=== PATIENT | female | born 1995 | race Caucasian/White ===

== ENCOUNTER 2017-12-21 17:40 | Emergency (ER) | payer OTHER ==
[2017-12-21 17:51] VITALS: BP 131/80
--- NOTE | 2017-12-21 18:33 | UC ---
Substance Abuse HPI - HPI Summary HPI Summary: States that she has used several opioids throughout the years, has snorted heroine powder in the past and also used oxycodone some time ago. Lately she was taking Fentanyl pills 30mg and stopped several days ago. She states she has chills and rapid heart rate and that she desires symptomatic treatment for withdrawal symptoms. She does not want to go to ER or referred to a program. She states she has a psychiatrist who is prescribing adderall due to ADHD and that is not aware she is a polysubstance user. - History Of Current Complaint Chief Complaint: UCSubstanceUseOverdose Stated Complaint: SUBSTANCE ABUSE HELP Time Seen by Provider: 12/21/17 18:02 Hx Obtained From: Patient ?: No Onset Of Abuse Is Stated In: Weeks Timing Of Abuse: Daily Severity Initially: Moderate Severity Currently: Moderate Character: Depressed, Anxious, Lethargic Aggravating Factor(s): Nothing Alleviating Factor(s): Nothing Associated Signs And Symptoms: Positive: Sleep Disturbance, Palpitations - Risk Factor(s) Completed Suicide Risk Factors: Negative - Allergies/Home Medications Allergies/Adverse Reactions: Allergies Allergy/AdvReac Type Severity Reaction Status Date / Time acetaminophen [From Tylenol] Allergy Tinnitus Verified 12/21/17 17:52 Home Medications: Home Medications Dextroamphetamine/Amphetamine [Adderall Xr 30 mg Capsule] 30 mg PO DAILY PRN 01/05 [History Confirmed 12/21/17] Zolpidem TAB* [Ambien*] 10 mg PO BEDTIME PRN 12/21/17 [History Confirmed ] PMH/Surg Hx/FS Hx/Imm Hx Previously Healthy: Yes Psychological History: Other - ADHD Other Psychological History: ADHD - Surgical History Surgical History: None - Social History Alcohol Use: None Substance Use Type: Heroin, Marijuana, Prescribed Smoking Status (MU): Never Smoked Tobacco Review of Systems Constitutional: Chills Cardiovascular: Palpitations All Other Systems Reviewed And Are Negative: Yes Physical Exam Triage Information Reviewed: Yes Appearance: Well-Appearing Vital Signs: Initial Vital Signs Temp 98.7 F 12/21/17 17:47 Pulse 104 12/21/17 17:47 Resp 20 12/21/17 17:47 BP 131/80 12/21/17 17:47 Pulse Ox 100 12/21/17 17:47 Vital Signs Reviewed: Yes Eyes: Positive: Conjunctiva Clear ENT: Positive: Hearing grossly normal, Pharynx normal, TMs normal, Uvula midline Neck: Positive: Supple, Nontender, No Lymphadenopathy Respiratory: Positive: Chest non-tender, Lungs clear, Normal breath sounds, No respiratory distress, No accessory muscle use Cardiovascular: Positive: RRR, No Murmur, Pulses Normal, Brisk Capillary Refill Abdomen Description: Positive: Nontender, No Organomegaly, Soft, Bruit Musculoskeletal: Positive: Strength Intact, ROM Intact, No Edema, Other: - no tremor Neurological: Positive: Alert Skin Exam: Normal Substance Abuse Course/Dx - Course Course Of Treatment: patient stable, patient does not want to go to ER or to be referred to a Detox/psychiatric program. [facility] program available at [phone], denies suicidal or homicidal ideation - Differential Dx/Diagnosis Clinic Physician Diagnoses: substance abuse. History of fentanyl use Discharge - Discharge Plan Condition: Stable Disposition: HOME Patient Education Materials: Polysubstance Abuse (ED) Referrals: No Primary Care Phys,[facility]CP [Primary Care Provider] - [facility] [Outside]
== END 2017-12-21 19:10 | disposition home or self-care (01) ==
LOC: UCEAST 17:40
DX: F11.10 Opioid abuse, uncomplicated (principal); F90.9 Attention-deficit hyperactivity disorder, unspecified type; R00.2 Palpitations; R68.83 Chills (without fever); Z88.6 Allergy status to analgesic agent
CPT/HCPCS: 99211; G0463